=== PATIENT | male | born 1940 | race Caucasian/White ===

== ENCOUNTER 2016-10-29 11:19 | Observation (INO) ==
--- NOTE | 2016-10-29 11:32 | Emergency Department Note ---
Disposition Clinical Impression: Syncope Qualifiers: Syncope type: unspecified Qualified Code(s): R55 - Syncope and collapse Disposition: Admitted As Inpatient Condition: Fair Referrals: NO,PCP [Non-Partnered Physician] - Forms: ED Satisfaction Letter Time of Disposition: 13:29 Syncope HPI - General Chief Complaint: ED Syncope Stated Complaint: syncope Time Seen by Provider: 10/29/16 11:25 Source: patient, EMS Mode of arrival: EMS Limitations: no limitations Nursing Notes Reviewed: Yes Vital Signs Reviewed: Yes - History of Present Illness HPI Narrative: 76-year-old gentleman who was actually having a procedure done which they were injecting his knees with steroids for arthritis and apparently became unresponsive for about 30 seconds. Medical workers at the scene stated the patient did not have a pulse for approximately 30 seconds. Patient does have a history of pacemaker defibrillator. On arrival the patient's awake and alert. I had actually seen this patient 1 week ago for arthralgias gout. He states the symptoms related to that have improved with treatment. 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 Duration: second(s) (30) Prodromal Symptoms: lightheaded Context: at rest Injuries Sustained Associated with Event: none Current Symptoms: none History: history of CAD, pacemaker, AICD Treatments prior to arrival: none Associated trauma secondary to event: No - Related Data Home Medications Medication Instructions Recorded Confirmed Albuterol Sulfate [Ventolin Hfa] 1 puff IH Q4H PRN #0 02/04/16 05/10/16 Alprazolam [Xanax 1 MG Tablet] 1 mg PO TID PRN 02/04/16 05/10/16 Atorvastatin [Lipitor] 40 mg PO DAILY 02/04/16 05/10/16 Isosorbide MONOnitrate (24 HR) 30 mg PO DAILY 02/04/16 05/10/16 [Imdur] Rivaroxaban [Xarelto] 15 mg PO DAILY 02/04/16 05/10/16 Aspirin 81 mg PO DAILY 02/06/16 05/10/16 Metoprolol XL (24 HR) Succ [Toprol 50 mg PO BID 02/09/16 05/10/16 Xl] Albuterol Neb [AccuNeb] 0.63 mg IH Q6H PRN 05/10/16 05/10/16 Enalapril Maleate [Vasotec] 10 mg PO BID 05/10/16 05/10/16 Furosemide [Lasix] 20 mg PO DAILY 05/10/16 05/10/16 Previous Rx's Medication Instructions Recorded PredniSONE 20 mg PO DAILY #20 tablet 09/07/16 OxyCODONE/APAP 10/325 [Percocet 1 each PO Q6HR PRN #12 tablet 10/23/16 10/325 MG] PredniSONE 10 mg PO DAILY #21 tablet 10/23/16 Allergies Allergy/AdvReac Type Severity Reaction Status Date / Time Iodinated Contrast Media - Allergy Anaphylaxis Verified 10/29/16 11:23 Oral and levofloxacin [From Levaquin] AdvReac TENDONITIS Verified 10/29/16 11:23 Constitutional: Denies: fever, chills, weakness, weight change Eyes: Denies: eye pain, eye discharge, vision change ENT ED: Denies: ear pain, throat pain, dental pain, hearing loss, epistaxis, congestion, dysphagia Cardiovascular: Reports: syncope. Denies: chest pain, palpitations, dyspnea on exertion, edema Respiratory: Denies: cough, dyspnea, wheezes, hemoptysis, stridor Gastrointestinal: Denies: abdominal pain, nausea, vomiting, diarrhea, constipation, hematemesis, melena, hematochezia Genitourinary: Denies: urgency, dysuria, frequency, hematuria Musculoskeletal: Denies: back pain, neck pain, arthralgia, myalgia Integumentary: Denies: rash, abrasion, lesions Neurological: Denies: headache, weakness, numbness, paresthesias, confusion, abnormal gait, vertigo Psychiatric: Denies: anxiety, depression, suicidal thoughts, homicidal thoughts , auditory hallucinations, visual hallucinations Endocrine: Denies: fatigue Hematological/Lymphatic: Denies: easy bleeding, easy bruising Allergic/Immunologic: Denies: facial swelling, urticaria Past Medical History - Past Medical History Medical history: Reports: asthma, CHF, COPD, hypertension, other Surgical history: Reports: carotid endarterectomy, colectomy, coronary bypass ( CABG), pacemaker/AICD Psychiatric history: Reports: no psych history - Social History Smoking Status: Former smoker Smokeless Tobacco Status: No Alcohol use: Reports: none Drug use: Reports: none Physical Exam - General Limitations: no limitations General appearance: alert, in no apparent distress - Head Head exam: atraumatic, normocephalic, normal inspection - Eye Eye exam: Present: normal appearance, PERRL, EOMI - ENT ENT exam: normal exam, normal oropharynx, mucous membranes moist - Neck Neck exam: Present: normal inspection, full ROM, trachea midline - Chest Chest inspection: Present: normal inspection, symmetric chest wall rise - Respiratory Respiratory exam: Present: normal lung sounds bilaterally - Cardiovascular Cardiovascular exam: Present: regular rate, normal rhythm, normal heart sounds - Abdominal Exam Abdominal exam: Present: soft, Non-Tender. Absent: tenderness, distention, guarding, rebound, rigidity - Extremities Exam Extremities exam: Present: normal inspection, full ROM. Absent: tenderness, pedal edema - Expanded Lower Extremity Exam Neurovascular/Tendon exam: Absent: motor deficit, sensory deficit, tendon deficit - Back Exam Back exam: Present: normal inspection, full ROM. Absent: tenderness - Neurological Exam Neurological exam: Present: alert, oriented X3 - Psychiatric Psychiatric exam: Present: normal affect, normal mood - Skin Skin exam: Present: warm, dry, intact, normal color Course - Reevaluation(s) Reevaluation #1: 76-year-old who was involved in a procedure which he was going to get his knees injected and apparently suffered a syncopal episode lasting for about 30 seconds. The patient did not have a palpable pulse. Patient did come to a hand is back to baseline now. The patient does have a defibrillator. We did have an interrogation of the pacemaker which didn't show any abnormalities. Time: 13:30 - Consultations Consultation #1: Discussed with Dr. Juares, admit. Time: 13:27 Vital Signs Temperature 97.6 F 10/29/16 11:20 Pulse Rate 86 10/29/16 11:20 Respiratory Rate 20 10/29/16 11:20 Blood Pressure 134/73 10/29/16 11:20 O2 Sat by Pulse Oximetry 95 10/29/16 11:20 Temperature 97.6 F 10/29/16 11:20 Pulse Rate 70 10/29/16 13:20 Respiratory Rate 18 10/29/16 13:20 Blood Pressure 129/94 10/29/16 13:20 O2 Sat by Pulse Oximetry 99 10/29/16 13:20 Oxygen Delivery Oxygen Delivery Room Air Syncope - Lab Data Result diagrams: 10/29/16 12:00 10/29/16 12:00 Lab Results 10/29/16 10/29/16 10/29/16 Range/Units 11:31 12:00 12:00 WBC 8.4 (4.3-11.1) K/mcL RBC 3.65 L (4.19-5.50) M/mcL Hgb 11.3 L (12.9-16.9) g/dL Hct 34.2 L (37.5-50.1) % MCV 93.7 (83.0-100.0) fL MCH 31.0 (28.0-33.3) pg MCHC 33.0 (31.6-35.5) g/dL RDW 13.1 (11.5-14.5) % Plt Count 188 (140-400) K/mcL MPV 9.5 (9.4-12.4) fL Immature Gran % 1.2 (0-4) % Seg Neutrophils % 87.9 % Lymphocytes % 7.1 % Monocytes % 3.7 % Eosinophils % 0.0 % Basophils % 0.1 % Neutrophils # 7.4 (1.6-8.9) K/mcL Lymphocytes # 0.6 (0.6-4.6) K/mcL Monocytes # 0.3 (0.0-1.3) K/mcL Eosinophils # 0.0 (0.0-0.6) K/mcL Basophils # 0.0 (0.0-0.2) K/mcL PT 15.8 H (9.4-12.1) Seconds INR 1.5 APTT 26.3 (26.0-36.0) Seconds Sodium (136-145) mEq/L Potassium (3.5-4.5) mEq/L Chloride (98-109) mEq/L Carbon Dioxide (19-29) mEq/L BUN (8-26) mg/dL Creatinine (0.72-1.25) mg/dL Est GFR ( Amer) (> 60) Est GFR (Non-Af Amer) (> 60) BUN/Creatinine Ratio (6-26) Glucose (70-99) mg/dL POC Glucose 188 H (58-89) Calculated Osmolality (280-300) Calcium (8.6-10.8) mg/dL Troponin I (0-0.03) ng/mL 01/27/17 01/27/17 Range/Units 12:00 12:00 WBC (4.3-11.1) K/mcL RBC (4.19-5.50) M/mcL Hgb (12.9-16.9) g/dL Hct (37.5-50.1) % MCV (83.0-100.0) fL MCH (28.0-33.3) pg MCHC (31.6-35.5) g/dL RDW (11.5-14.5) % Plt Count (140-400) K/mcL MPV (9.4-12.4) fL Immature Gran % (0-4) % Seg Neutrophils % % Lymphocytes % % Monocytes % % Eosinophils % % Basophils % % Neutrophils # (1.6-8.9) K/mcL Lymphocytes # (0.6-4.6) K/mcL Monocytes # (0.0-1.3) K/mcL Eosinophils # (0.0-0.6) K/mcL Basophils # (0.0-0.2) K/mcL PT (9.4-12.1) Seconds INR APTT (26.0-36.0) Seconds Sodium 134 L (136-145) mEq/L Potassium 5.5 H (3.5-4.5) mEq/L Chloride 97 L (98-109) mEq/L Carbon Dioxide 28 (19-29) mEq/L BUN 70 H (8-26) mg/dL Creatinine 1.15 (0.72-1.25) mg/dL Est GFR ( Amer) > 60 (> 60) Est GFR (Non-Af Amer) > 60 (> 60) BUN/Creatinine Ratio 61 H (6-26) Glucose 178 H (70-99) mg/dL POC Glucose (58-89) Calculated Osmolality 303 H (280-300) Calcium 9.5 (8.6-10.8) mg/dL Troponin I 0.02 (0-0.03) ng/mL - EKG Data EKG attestation: Yes I reviewed and interpreted this EKG. EKG results narrative: Demand pacemaker
[2016-10-29 12:35] LABS: Basophils % 0.1 %; Hematocrit 34.2 % (37.5-50.1); Hemoglobin 11.3 g/dL (12.9-16.9); Immature Granulocytes % 1.2 % (0-4); Lymphocytes # 0.6 K/mcL (0.6-4.6); Lymphocytes % 7.1 %; Mean Corpuscular Volume 93.7 fL (83.0-100.0); Mean Platelet Volume 9.5 fL (9.4-12.4); Monocytes # 0.3 K/mcL (0.0-1.3); Monocytes % 3.7 %; Neutrophils # 7.4 K/mcL (1.6-8.9); Platelet Count 188 K/mcL (140-400); Red Blood Count 3.65 M/mcL (4.19-5.50); Red Cell Distribution Width 13.1 % (11.5-14.5); Segmented Neutrophils % 87.9 %
[2016-10-29 12:41] LABS: INR 1.5; Prothrombin Time 15.8 Seconds (9.4-12.1)
[2016-10-29 12:44] LABS: Activated Partial Thrombo Time 26.3 Seconds (26.0-36.0)
[2016-10-29 12:45] LABS: BUN/Creatinine Ratio 61 (6-26); Blood Urea Nitrogen 70 mg/dL (8-26); Calcium 9.5 mg/dL (8.6-10.8); Carbon Dioxide 28 mEq/L (19-29); Chloride 97 mEq/L (98-109); Glucose 178 mg/dL (70-99); Osmolality,Calculated 303 (280-300); Potassium 5.5 mEq/L (3.5-4.5); Sodium 134 mEq/L (136-145); eGFR For African Americans > 60 (> 60); eGFR For Non-African Americans > 60 (> 60)
[2016-10-29] MEDS ORDERED: Naloxone 0.4 MG/ML INJ IVP PRN (15:09)
[2016-10-29] MEDS ORDERED: *HR* OxyCODONE/APAP 5/325 TABLET PO PRN (15:14)
--- NOTE | 2016-10-29 15:25 | Internal Med History&Physical ---
<Alonso Juares - Last Filed: 10/29/16 18:38> Date of Encounter: 10/29/16 Internal Medicine - H&P: HPI History of present illness: Mr. Perry is a 76 year old male Internal Medicine - H&P: Meds Albuterol Sulfate [Ventolin Hfa] 1 puff IH Q4H PRN #0 02/04/16 [History] Isosorbide MONOnitrate (24 HR) [Imdur] 30 mg PO DAILY 02/04/16 [History] Rivaroxaban [Xarelto] 15 mg PO DAILY 02/04/16 [History] Aspirin 81 mg PO DAILY 02/06/16 [History] Albuterol Neb [AccuNeb] 0.63 mg IH Q6H PRN 05/10/16 [History] Enalapril Maleate [Vasotec] 10 mg PO BID 05/10/16 [History] OxyCODONE/APAP 10/325 [Percocet 10/325 MG] 1 each PO Q6HR PRN #12 tablet [Rx] Alprazolam [Xanax 0.5 MG Tablet] 0.5 mg PO TID PRN 10/29/16 [History] Digoxin [Lanoxin] 0.125 mg PO DAILY 10/29/16 [History] Docusate Sodium [Dok] 100 mg PO DAILY 10/29/16 [History] FentaNYL PATCH [Duragesic] 12 mcg TD Q72H 10/29/16 [History] Furosemide [Lasix] 40 mg PO DAILY 10/29/16 [History] Metoprolol [Lopressor] 50 mg PO BID 10/29/16 [History] Potassium Chloride [Klor-Con Sprinkle] 10 meq PO DAILY 10/29/16 [History] Allergies Iodinated Contrast Media - Oral and Allergy (Verified 10/29/16 14:08) Anaphylaxis levofloxacin [From Levaquin] Adverse Reaction (Verified 10/29/16 14:08) TENDONITIS All Systems PM: A 10-system review of systems was performed and is negative for pertinent findings except as documented above in the HPI. - Constitutional Vitals: Temp Pulse Resp BP Pulse Ox 97.7 F 74 18 154/82 97 10/29/16 14:15 10/29/16 14:15 10/29/16 14:15 10/29/16 14:15 10/29/16 14:15 Internal Med - H&P Results - Labs CBC & Chem 7: 10/29/16 12:00 10/29/16 12:00 - Attending Attestation I examined this patient and my medical decision-making was reviewed with the Advanced Practice Provider. I agree with the documented findings, disposition and treatment plan as described except to the extent set forth below. He was sent for evaluation for reported withunresponsive episode and pulselessness lasted for 30 seconds. He denies syncope denies loss of consciousness. On exam he is in no acute distress awake alert oriented 3 heart is regular rate and rhythm S1-S2 with no murmurs. Plan: Telemetry, trend troponin. Check digoxin level. Check orthostatic vital signs to rule out a blood pressure drop one of which could have caused syncope. <Ros Cochran - Last Filed: 10/30/16 00:30> Date of Encounter: 10/30/16 Time of Encounter: 15:17 Assessment and Plan (1) Syncope Current visit: Yes Status: Acute patient was witnessed with unresponsive, pulseless episode at outpatient office today. Patient reports feeling dizzy and nauseous, but does not recall losing consciousness. Patient with significant cardiac history with cardiomyopathy and EF of 15-20% on last echo in April. Interrogation of his AICD reveals 100% AT/Afib with no events. CT Head negative for acute abnormality. 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 Qualifiers: Syncope type: unspecified Qualified Code(s): R55 - Syncope and collapse (2) Hypertension Current visit: Yes Status: Acute Continue home doses of lasix, imdur, lisinopri and metoprolol Qualifiers: Hypertension type: essential hypertension Qualified Code(s): I10 - Essential (primary) hypertension (3) Ischemic cardiomyopathy Current visit: No Status: Acute Last echo showed Severely dilated Left ventricle with Severe left ventricle systolic dysfunction and LVEF of 15-20% Continue digoxin, lasix, imdur. Patient with AICD in place. Digoxin level ordered. (4) Paroxysmal a-fib Current visit: No Status: Acute Patient on Xarelto for anticoagulation and metoprolol for rate control. Also with AICD/pacemaker. Continue home doses of Xarelto and metoprolol. (5) Hyperkalemia Current visit: Yes Status: Acute Potassium of 5.5. Hold home dose of potassium supplement Kayexalate 15gm Recheck chemistry in the morning. (6) DVT prophylaxis Current visit: No Status: Acute Up to chair as tolerated Anti-embolic stockings Patient on Xarelto, continue home dose. No need for additional pharmacologic prophylaxis. Internal Medicine - H&P: HPI Chief complaint: Unresponsive episode Admitted From: Emergency Dept Plans for Post Hospital Care: Home History of present illness: Mr. Perry is a 76 year old male with ischemic cardiomyopathy with EF of 15-20% and with AICD, Afib, CHF, COPD, who was getting a steroid injection in his knee and reportedly became unresponsive without a pulse for approximately 30 seconds. Patient reports he felt a little dizzy and nauseous, but does not recall losing consciousness. He denies any chest pain, palpitations, headache. He denies any other recent episodes of lightheadedness or dizziness. Evaluation in the ED was significant for mild hyperkalemia with potassium 5.5, troponin was negative at 0.02. Interrogation of his pacemaker showed 100% Afib , with no events. EKG showed no new ischemic changes. CXR with no acute findings. CT of head with no acute abnormalities. On exam, patient is alert and oriented, in no distress. Heart has irregular rhythm. Lungs are clear. Patient reporting joint pain. Past Med Surg Social Fam HX - Past Medical History Medical history: asthma, atrial fibrillation, cardiomyopathy, CHF, COPD, coronary artery disease, DVT, hypertension, renal disease, other Psychiatric history: no psych history - Past Surgical History Surgical History: carotid endarterectomy, cholecystectomy, coronary bypass (CABG ) (twice), pacemaker/AICD, vascular surgery (AAA repair) - Social History Smoking Status: Former smoker (100 pack year history (3PPD x 30+years, quit 1979 )) Smokeless Tobacco Status: No Alcohol use: none Drug use: none - Family History Father Living Status: Hx Family Cancer: Yes (skin cancer) Mother Living Status: Age at : 49 Cause of : Cancer Hx Family Cancer: Yes All Systems PM: A 10-system review of systems was performed and is negative for pertinent findings except as documented above in the HPI. - Constitutional Constitutional: no chills, no fever(s), no night sweats - EENT Eyes: no change in vision, no discharge, no pain, no photophobia Ears: no ear discharge, no ear pain, no tinnitus Nose, mouth and throat: no dysphagia, no nasal discharge, no neck pain, no sore throat - Cardiovascular Cardiovascular ROS IM: syncope, no chest pain, no diaphoresis, no dyspnea, no lightheadedness, no palpitations - Respiratory Respiratory: no cough, no dyspnea, no wheezing, no excessive phlegm production - Gastrointestinal Gastrointestinal: nausea, no abdominal pain, no diarrhea, no hematemesis, no hematochezia, no melena, no vomiting - Musculoskeletal Musculoskeletal ROS IM: arthralgias, joint swelling, no numbness, no tingling - Integumentary Integumentary IM: no rash, no unusual bruising - Neurological Neurological ROS: no confusion, no convulsions, no focal weakness, no numbness, no tingling, no tremor(s) - Hematologic/Lymphatic Hematologic/Lymphatic: easy bruising - Constitutional Vitals: Temp Pulse Resp BP Pulse Ox 97.7 F 74 18 154/82 97 10/29/16 14:15 10/29/16 14:15 10/29/16 14:15 10/29/16 14:15 10/29/16 14:15 General appearance: Present: A&O X 3, no acute distress - Head Head exam: Present: atraumatic, normocephalic - Eye Eye exam: Present: PERRL, conjuntiva pink, sclera anicteric Pupils: Present: PERRL - Neck Neck exam general surgery: Present: supple, trachea midline. Absent: lymphadenopathy - Respiratory Respiratory exam: Present: CTAB. Absent: accessory muscle use, rales, rhonchi, wheezes - Cardiovascular Cardiovascular exam: Present: irregular rhythm, +S1, +S2, systolic murmur. Absent: diastolic murmur, gallop, rubs - GI/Abdominal GI/Abdominal exam: Present: normal bowel sounds, soft, no peritoneal signs. Absent: distended, tenderness - Extremities Exam Extremities exam: Present: joint swelling, pedal edema, warm, radial pulses palpable and symetrical. Absent: calf tenderness, cyanotic - Neurological Exam Neurological exam: Present: CN II-XII intact, oriented X3, no focal deficits. Absent: pronater drift, facial droop, speech deficit - Skin Skin exam: Present: dry, intact Internal Med - H&P Results - Labs CBC & Chem 7: 10/29/16 12:00 10/29/16 12:00 Labs: All Lab Results (24 Hours) 10/29/16 10/29/16 10/29/16 Range/Units 11:31 12:00 12:00 WBC 8.4 (4.3-11.1) K/mcL RBC 3.65 L (4.19-5.50) M/mcL Hgb 11.3 L (12.9-16.9) g/dL Hct 34.2 L (37.5-50.1) % MCV 93.7 (83.0-100.0) fL MCH 31.0 (28.0-33.3) pg MCHC 33.0 (31.6-35.5) g/dL RDW 13.1 (11.5-14.5) % Plt Count 188 (140-400) K/mcL MPV 9.5 (9.4-12.4) fL Immature Gran % 1.2 (0-4) % Seg Neutrophils % 87.9 % Lymphocytes % 7.1 % Monocytes % 3.7 % Eosinophils % 0.0 % Basophils % 0.1 % Neutrophils # 7.4 (1.6-8.9) K/mcL Lymphocytes # 0.6 (0.6-4.6) K/mcL Monocytes # 0.3 (0.0-1.3) K/mcL Eosinophils # 0.0 (0.0-0.6) K/mcL Basophils # 0.0 (0.0-0.2) K/mcL PT 15.8 H (9.4-12.1) Seconds INR 1.5 APTT 26.3 (26.0-36.0) Seconds Sodium (136-145) mEq/L Potassium (3.5-4.5) mEq/L Chloride (98-109) mEq/L Carbon Dioxide (19-29) mEq/L BUN (8-26) mg/dL Creatinine (0.72-1.25) mg/dL Est GFR ( Amer) (> 60) Est GFR (Non-Af Amer) (> 60) BUN/Creatinine Ratio (6-26) Glucose (70-99) mg/dL POC Glucose 188 H (58-89) Calculated Osmolality (280-300) Calcium (8.6-10.8) mg/dL Troponin I (0-0.03) ng/mL 10/29/16 10/29/16 Range/Units 12:00 12:00 WBC (4.3-11.1) K/mcL RBC (4.19-5.50) M/mcL Hgb (12.9-16.9) g/dL Hct (37.5-50.1) % MCV (83.0-100.0) fL MCH (28.0-33.3) pg MCHC (31.6-35.5) g/dL RDW (11.5-14.5) % Plt Count (140-400) K/mcL MPV (9.4-12.4) fL Immature Gran % (0-4) % Seg Neutrophils % % Lymphocytes % % Monocytes % % Eosinophils % % Basophils % % Neutrophils # (1.6-8.9) K/mcL Lymphocytes # (0.6-4.6) K/mcL Monocytes # (0.0-1.3) K/mcL Eosinophils # (0.0-0.6) K/mcL Basophils # (0.0-0.2) K/mcL PT (9.4-12.1) Seconds INR APTT (26.0-36.0) Seconds Sodium 134 L (136-145) mEq/L Potassium 5.5 H (3.5-4.5) mEq/L Chloride 97 L (98-109) mEq/L Carbon Dioxide 28 (19-29) mEq/L BUN 70 H (8-26) mg/dL Creatinine 1.15 (0.72-1.25) mg/dL Est GFR ( Amer) > 60 (> 60) Est GFR (Non-Af Amer) > 60 (> 60) BUN/Creatinine Ratio 61 H (6-26) Glucose 178 H (70-99) mg/dL POC Glucose (58-89) Calculated Osmolality 303 H (280-300) Calcium 9.5 (8.6-10.8) mg/dL Troponin I 0.02 (0-0.03) ng/mL
[2016-10-29] MEDS: *HR* HYDROmorphone (PF) 1 MG/ML SYRINGE IVP PRN (20:27)
[2016-10-29] MEDS: Famotidine 20 MG TABLET PO SCH (20:27)
[2016-10-29] MEDS ORDERED: Albuterol 2.5 MG/3 ML NEBULIZER IH PRN (21:45)
[2016-10-30] MEDS: *HR* HYDROmorphone (PF) 1 MG/ML SYRINGE IVP PRN ×2 (03:43→10:50)
[2016-10-30 06:14] LABS: Basophils % 0.2 %; Eosinophils # 0.1 K/mcL (0.0-0.6); Eosinophils % 0.6 %; Hematocrit 31.5 % (37.5-50.1); Hemoglobin 10.6 g/dL (12.9-16.9); Lymphocytes # 1.8 K/mcL (0.6-4.6); Lymphocytes % 21.7 %; Mean Corpuscular HGB Conc 33.7 g/dL (31.6-35.5); Mean Corpuscular Hemoglobin 31.2 pg (28.0-33.3); Mean Corpuscular Volume 92.6 fL (83.0-100.0); Mean Platelet Volume 9.6 fL (9.4-12.4); Monocytes # 0.6 K/mcL (0.0-1.3); Monocytes % 6.7 %; Neutrophils # 5.7 K/mcL (1.6-8.9); Platelet Count 183 K/mcL (140-400); Red Cell Distribution Width 13.2 % (11.5-14.5); Segmented Neutrophils % 69.8 %
[2016-10-30 06:18] LABS: BUN/Creatinine Ratio 59 (6-26); Blood Urea Nitrogen 73 mg/dL (8-26); Calcium 8.7 mg/dL (8.6-10.8); Carbon Dioxide 24 mEq/L (19-29); Chloride 98 mEq/L (98-109); Glucose 145 mg/dL (70-99); Osmolality,Calculated 302 (280-300); Potassium 4.7 mEq/L (3.5-4.5); Sodium 134 mEq/L (136-145); eGFR For African Americans > 60 (> 60); eGFR For Non-African Americans 56 (> 60)
--- NOTE | 2016-10-30 09:04 | ECHO - Doppler Report ---
Limited Echocardiogram Name: Will Perry Date of Study: 10/29/2016 Date: 1940 Ht: 71.0 in Medical Record#: [id number] Age: 76 Wt: 232.0 lb Gender: Male BSA: 2.25 Order #: [id number] Location: [facility] Room #: [facility] Reading Physician: Eren Segura MD, [facility] [employer] Maker Helper: Kasey Leon RDCS Ordering Physician: Ros Cochran CNP Primary Physician: Jaime Isaac DO Indications: Syncope Impressions: Moderately dilated left ventricle. Severe left ventricular systolic dysfunction, LVEF 25-30%. There is global LV hypokinesis with regional variations. Mild concentric left ventricular hypertrophy. Right ventricle was not well visualized. Valvular function was not assessed on this limited study. Left Ventricular Wall Motion: Rest Echo Findings The apex, apical inferior, mid inferior, basal inferior, apical anterior, mid anterior, basal anterior, apical septal, mid inferior septal, basal inferior septal, apical lateral, mid anterior lateral, basal anterior lateral, mid anterior septal, mid inferior lateral, basal anterior septal and basal inferior lateral seo were hypokinetic. Findings: Study Quality * Suboptimal echo windows. ECG Findings * Probable atrial fibrillation with ventricular pacing. Left Ventricle * Moderately dilated left ventricle. * Severe left ventricular systolic dysfunction, LVEF 25-30%. There is global LV hypokinesis with regional variations. * Mild concentric left ventricular hypertrophy. Right Ventricle * Right ventricle was not well visualized. Aorta * Normally sized aortic root. Pericardium * There is no pericardial effusion present. IVC * Normal IVC dimensions and inspiratory collapse. History Hypertension History of CAD/PTCA Coronary Artery Bypass Graft Congestive Heart Failure Pacer/ICD Implant 04/20/2016 a Previous Echo was performed. Measurements: BP: 107/ 64 2D Normal Values RVIDd: 3.66 cm IVSd: 1.20 cm 0.6 - 1.0 cm LVIDd: 6.40 cm 3.7 - 5.6 cm LVPWd: 1.20 cm 0.6 - 1.1 cm LVIDs: 5.90 cm 1.5 - 3.6 cm AO: 3.60 cm < 4.0 cm Updated by Eren Segura MD, [facility] on 10/30/2016 8:58:40 AM electronically signed on 10/30/2016 9:00:06 AM with status of Final Wall Motion Bradley: 1=Normal, 2=Hypokinesis, 3=Akinesis, 4=Dyskinesis, 5=Aneurysmal, 6=Hyperkinetic, X=Not Visualized (Blank)=Missing
[2016-10-30] MEDS: Furosemide 40 MG TABLET PO SCH (09:39)
[2016-10-30] MEDS: *HR* Digoxin 0.125 MG TABLET PO SCH (09:39)
[2016-10-30] MEDS: Isosorbide MONOnitrate (24 HR) 30 MG TAB.ER.24H PO SCH (09:39)
[2016-10-30] MEDS: *HR* Rivaroxaban 15 MG TABLET PO SCH (09:39)
[2016-10-30] MEDS: Famotidine 20 MG TABLET PO SCH ×2 (09:39→20:21)
[2016-10-30] MEDS: Aspirin 81 MG TAB.CHEW PO SCH (09:39)
--- NOTE | 2016-10-30 12:58 | Palliative - Consult Note ---
Date of Encounter: 10/30/16 Time of Encounter: 13:00 - Assessment and Plan (1) Pain Current Visit: Yes Status: Acute Assessment and plan: Will resume Fentanyl 12mcg patch as pt takes at home, continue Percocet for breakthrough pain (2) Goals of care, counseling/discussion Current Visit: Yes Status: Acute Assessment and plan: Patient is enrolled in [facility] for CHF diagnosis. Lives with , who has had CVA and states they get some assistance from other family members. 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 denies any other type of equipment need at home, stated "he probably shouldn't have went for the knee injection yesterday, probably too much for his body to handle.". (3) Syncope Current Visit: Yes Status: Acute Qualifiers: Syncope type: unspecified Qualified Code(s): R55 - Syncope and collapse Palliative-CN HPI - Data of Consult Requesting Physician: Chuy Joseph Primary Care Provider: Jaime Isaac, - Consult Narrative History of present illness: Mr. Perry is a 76 year old male who has history of CHF, cardiomyopathy, pacer/ AICD and is enrolled in [facility] at home, who presented to hospital after a syncopal episode following a knee injection. He is currently resting in hospital bed, no family present. He was sleeping on my arrival, and irritated with me for disturbing him. He had one episode of chest pain earlier this am, which is now relieved. Echo yesterday demonstrated EF 25%. Labwork noted. Pacer/AICD interrogation was completed yesterday as well. He currently complains of "hurting all over" and "feeling terrible". Does not elaborate. Other medical history includes DVT, COPD, CAD, HTN, Renal disease. CC: Chuy Joseph Past Med Surg Social Fam HX - Past Medical History Medical history: asthma, atrial fibrillation, cardiomyopathy, CHF, COPD, coronary artery disease, DVT, hypertension, renal disease, other Psychiatric history: no psych history - Past Surgical History Surgical History: carotid endarterectomy, cholecystectomy, coronary bypass (CABG ) (twice), pacemaker/AICD, vascular surgery (AAA repair) - Social History Smoking Status: Former smoker (100 pack year history (3PPD x 30+years, quit 1979 )) Smokeless Tobacco Status: No Alcohol use: none Drug use: none - Family History Mother Living Status: Age at : 49 Cause of : Cancer Hx Family Cancer: Yes Father Living Status: Hx Family Cancer: Yes (skin cancer) Medications and Allergies Albuterol Sulfate [Ventolin Hfa] 1 puff IH Q4H PRN #0 02/04/16 [History] Isosorbide MONOnitrate (24 HR) [Imdur] 30 mg PO DAILY 02/04/16 [History] Rivaroxaban [Xarelto] 15 mg PO DAILY 02/04/16 [History] Aspirin 81 mg PO DAILY 02/06/16 [History] Albuterol Neb [AccuNeb] 0.63 mg IH Q6H PRN 05/10/16 [History] Enalapril Maleate [Vasotec] 10 mg PO BID 05/10/16 [History] OxyCODONE/APAP 10/325 [Percocet 10/325 MG] 1 each PO Q6HR PRN #12 tablet [Rx] Alprazolam [Xanax 0.5 MG Tablet] 0.5 mg PO TID PRN 10/29/16 [History] Digoxin [Lanoxin] 0.125 mg PO DAILY 10/29/16 [History] Docusate Sodium [Dok] 100 mg PO DAILY 10/29/16 [History] FentaNYL PATCH [Duragesic] 12 mcg TD Q72H 10/29/16 [History] Furosemide [Lasix] 40 mg PO DAILY 10/29/16 [History] Metoprolol [Lopressor] 50 mg PO BID 10/29/16 [History] Potassium Chloride [Klor-Con Sprinkle] 10 meq PO DAILY 10/29/16 [History] Allergies Iodinated Contrast Media - Oral and Allergy (Verified 10/29/16 14:08) Anaphylaxis levofloxacin [From Levaquin] Adverse Reaction (Verified 10/29/16 14:08) TENDONITIS All systems: reviewed and no additional remarkable complaints except as stated ( generalized weakness, intermittent chest pain,) Palliative Care-Exam - Constitutional Vitals: Temp Pulse Resp BP Pulse Ox 97.8 F 76 14 134/56 97 10/30/16 06:51 10/30/16 06:51 10/30/16 06:51 10/30/16 06:51 10/30/16 06:51 General appearance: Present: average body habitus - Head Head Exam: Present: normal inspection, normocephalic - Eye Eye exam: Present: EOMI, normal appearance, PERRL - Respiratory Respiratory exam: Present: CTAB - Cardiovascular Cardiovascular exam: Present: +S1, +S2, systolic murmur - GI/Abdominal Exam GI/Abdominal exam: Present: normal bowel sounds, soft - Extremities Exam Extremities exam: Present: normal capillary refill Additional comments: 2+ edema bilateral lower extremities - Neurological Exam Neurological exam: Present: alert, oriented X3, strengths equal and symetr throughout - Skin Skin exam: Present: dry, pallor, warm Internal Medicine - CN: Reslt - Labs CBC & Chem 7: 10/30/16 04:56 10/30/16 04:56 Labs: Short CBC 10/30/16 Range/Units 04:56 WBC 8.2 (4.3-11.1) K/mcL Hgb 10.6 L (12.9-16.9) g/dL Hct 31.5 L (37.5-50.1) % Plt Count 183 (140-400) K/mcL Neutrophils # 5.7 (1.6-8.9) K/mcL BMP 10/30/16 04:56 Sodium 134 L Potassium 4.7 H Chloride 98 Carbon Dioxide 24 BUN 73 H Creatinine 1.24 Glucose 145 H Calcium 8.7 Cardiac Enzymes 10/29/16 10/30/16 10/30/16 Range/Units 18:18 04:56 11:41 Troponin I 0.02 0.03 0.03 (0-0.03) ng/mL - ABG Interpretation ABG results: PT/INR, D-dimer PT 15.8 Seconds (9.4-12.1) H 10/29/16 12:00 Consult Discharge Plan - Plan Referrals: Jaime Isaac DO [Primary Care Provider] - Palliative Quality Palliative Quality: Screen for Code Status: Yes, Screen for Goals of Care: Yes, Screen for Pain: Yes, If Pain Regimen Started, Initiate Bowel Regimen: Yes, Screen for Nausea/Vomitting: Yes Code Status: 10/29/16 15:09 Resuscitation Status: Active [RES] Routine Comment: Resuscitation Status: DNR-Comfort Care
[2016-10-30] MEDS ORDERED: *HR* FentaNYL PATCH 12 MCG PATCH TD SCH (13:00)
--- NOTE | 2016-10-30 17:08 | Internal Med Progress Note ---
Date of Encounter: 10/30/16 Time of Encounter: 17:06 - Assessment and plan (1) Syncope Current Visit: Yes Status: Acute Assessment and plan: Syncope likely vasovagal in origin. We will continue monitoring. The patient is under hospice care, will not proceed with any invasive workup at this point. I have consulted our hospice by the surgical team for further evaluation. We will continue with his home medication for pain control. Had chest pain however troponins have been negative. We will stop monitoring troponins at this point. We will continue current management and possible discharge tomorrow in a.m. back to home hospice services. Qualifiers: Syncope type: unspecified Qualified Code(s): R55 - Syncope and collapse (2) Goals of care, counseling/discussion Current Visit: Yes Status: Acute (3) Biventricular ICD (implantable cardioverter-defibrillator) in place Current Visit: No Status: Acute (4) Congestive heart failure Current Visit: No Status: Acute Qualifiers: Congestive heart failure type: unspecified congestive heart failure type Congestive heart failure chronicity: acute on chronic Qualified Code(s): I50.9 - Heart failure, unspecified - Time Spent With Patient 25 - 35 minutes - Subjective Interval history: 1st encounter with the patient. The patient was complaining of chest pain. Denies shortness of breath. He did receive opiates for pain control. - Constitutional Vitals: Temp Pulse Resp BP Pulse Ox 97.8 F 74 18 109/59 98 10/30/16 15:26 10/30/16 15:26 10/30/16 15:26 10/30/16 15:26 10/30/16 15:26 General appearance: Present: A&O X 3, no acute distress - Head Head exam: Present: atraumatic, normocephalic - Eye Eye exam: Present: PERRL, conjuntiva pink, sclera anicteric Pupils: Present: PERRL - Neck Neck exam general surgery: Present: supple, trachea midline. Absent: lymphadenopathy - Respiratory Respiratory exam: Present: CTAB. Absent: accessory muscle use, rales, rhonchi, wheezes - Cardiovascular Cardiovascular exam: Present: RRR, +S1, +S2. Absent: diastolic murmur, gallop, rubs, systolic murmur - GI/Abdominal GI/Abdominal exam: Present: normal bowel sounds, soft, no peritoneal signs. Absent: distended, tenderness - Extremities Exam Extremities exam: Present: warm, radial pulses palpable and symetrical. Absent : calf tenderness, cyanotic, pedal edema - Neurological Exam Neurological exam: Present: CN II-XII intact, oriented X3, no focal deficits. Absent: pronater drift, facial droop, speech deficit - Skin Skin exam: Present: dry, intact Internal Medicine: Result - Labs CBC & Chem 7: 10/30/16 04:56 10/30/16 04:56 Labs: Short CBC 10/30/16 Range/Units 04:56 WBC 8.2 (4.3-11.1) K/mcL Hgb 10.6 L (12.9-16.9) g/dL Hct 31.5 L (37.5-50.1) % Plt Count 183 (140-400) K/mcL Neutrophils # 5.7 (1.6-8.9) K/mcL BMP 10/30/16 04:56 Sodium 134 L Potassium 4.7 H Chloride 98 Carbon Dioxide 24 BUN 73 H Creatinine 1.24 Glucose 145 H Calcium 8.7 Cardiac Enzymes 10/29/16 10/30/16 10/30/16 Range/Units 18:18 04:56 11:41 Troponin I 0.02 0.03 0.03 (0-0.03) ng/mL - ABG Interpretation ABG results: PT/INR, D-dimer PT 15.8 Seconds (9.4-12.1) H 10/29/16 12:00 Consult Discharge Plan - Plan Referrals: Jaime Isaac DO [Primary Care Provider] -
[2016-10-30] MEDS: ALPRAZolam 0.5 MG TABLET PO PRN (20:21)
[2016-10-31 04:51] LABS: Basophils % 0.3 %; Eosinophils # 0.2 K/mcL (0.0-0.6); Eosinophils % 2.8 %; Hematocrit 32.7 % (37.5-50.1); Immature Granulocytes % 1.7 % (0-4); Lymphocytes # 1.4 K/mcL (0.6-4.6); Lymphocytes % 19.6 %; Mean Corpuscular HGB Conc 33.6 g/dL (31.6-35.5); Mean Corpuscular Hemoglobin 30.8 pg (28.0-33.3); Mean Corpuscular Volume 91.6 fL (83.0-100.0); Mean Platelet Volume 9.1 fL (9.4-12.4); Monocytes # 0.3 K/mcL (0.0-1.3); Monocytes % 4.8 %; Neutrophils # 5.1 K/mcL (1.6-8.9); Platelet Count 182 K/mcL (140-400); Red Blood Count 3.57 M/mcL (4.19-5.50); Red Cell Distribution Width 13.2 % (11.5-14.5); Segmented Neutrophils % 70.8 %
[2016-10-31 05:12] LABS: Calcium 8.4 mg/dL (8.6-10.8); Potassium 4.4 mEq/L (3.5-4.5)
--- NOTE | 2016-10-31 05:28 | Electrocardiograph Report ---
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
[2016-10-31] MEDS: Isosorbide MONOnitrate (24 HR) 30 MG TAB.ER.24H PO SCH (09:51)
[2016-10-31] MEDS: *HR* Digoxin 0.125 MG TABLET PO SCH (09:51)
[2016-10-31] MEDS: ALPRAZolam 0.5 MG TABLET PO PRN ×2 (09:51→14:57)
[2016-10-31] MEDS: Famotidine 20 MG TABLET PO SCH (09:51)
[2016-10-31] MEDS: *HR* Rivaroxaban 15 MG TABLET PO SCH (09:51)
[2016-10-31] MEDS: Aspirin 81 MG TAB.CHEW PO SCH (09:51)
[2016-10-31] MEDS: Furosemide 40 MG TABLET PO SCH (09:52)
[2016-10-31 10:48] VITALS: BP 110/51
--- NOTE | 2016-10-31 10:50 | Discharge Summary ---
Date of Encounter: 10/31/16 Time of Encounter: 10:46 - Discharge Diagnosis (1) Syncope Priority: Primary Status: Acute Qualifiers: Syncope type: unspecified Qualified Code(s): R55 - Syncope and collapse (2) Goals of care, counseling/discussion Priority: Secondary Status: Acute (3) Biventricular ICD (implantable cardioverter-defibrillator) in place Priority: Secondary Status: Acute (4) Congestive heart failure Priority: Secondary Status: Acute Qualifiers: Congestive heart failure type: unspecified congestive heart failure type Congestive heart failure chronicity: acute on chronic Qualified Code(s): I50.9 - Heart failure, unspecified - Discharge Medications Home Medications: Albuterol Sulfate [Ventolin Hfa] 1 puff IH Q4H PRN #0 02/04/16 [History] Isosorbide MONOnitrate (24 HR) [Imdur] 30 mg PO DAILY 02/04/16 [History] Rivaroxaban [Xarelto] 15 mg PO DAILY 02/04/16 [History] Aspirin 81 mg PO DAILY 02/06/16 [History] Albuterol Neb [AccuNeb] 0.63 mg IH Q6H PRN 05/10/16 [History] Enalapril Maleate [Vasotec] 10 mg PO BID 05/10/16 [History] OxyCODONE/APAP 10/325 [Percocet 10/325 MG] 1 each PO Q6HR PRN #12 tablet [Rx] Alprazolam [Xanax 0.5 MG Tablet] 0.5 mg PO TID PRN 10/29/16 [History] Digoxin [Lanoxin] 0.125 mg PO DAILY 10/29/16 [History] Docusate Sodium [Dok] 100 mg PO DAILY 10/29/16 [History] FentaNYL PATCH [Duragesic] 12 mcg TD Q72H 10/29/16 [History] Furosemide [Lasix] 40 mg PO DAILY 10/29/16 [History] Metoprolol [Lopressor] 50 mg PO BID 10/29/16 [History] Potassium Chloride [Klor-Con Sprinkle] 10 meq PO DAILY 10/29/16 [History] Allergies/Adverse Reactions: Allergies Iodinated Contrast Media - Oral and Allergy (Verified 10/29/16 14:08) Anaphylaxis levofloxacin [From Levaquin] Adverse Reaction (Verified 10/29/16 14:08) TENDONITIS Procedures/tests Complete & Pending: Procedures Performed prior 72 hours Category Date Time Status EV limited echocardiogram Routine Y 10/29/16 15:15 Completed Date of admission: 10/29/16 13:41 Primary care physician: Jaime Isaac, Consults: 10/29/16 14:28 Consult to Nutrition [CONS] Routine Comment: Consulting Provider: NUTRITION Reason for Dietary Consult: MST Score 10/30/16 11:25 Consult to Palliative Care [CONS] Routine Comment: Consulting Provider: Palliative Care [employer] Discharging clinician: Chuy Joseph Anticipated date of discharge: 10/31/16 - Patient Status Disposition: Home Health Service Condition: Fair Functional capacity at discharge: bed bound Overall status at discharge: patient is back to baseline - Discharge Instructions Follow Up With: Jaime Isaac DO [Primary Care Provider] - - Diet and Activity Activity: increase activity as tolerated Interval History: Mr. Perry is a 76 year old male with ischemic cardiomyopathy with EF of 15-20% and with AICD, Afib, CHF, COPD, who was getting a steroid injection in his knee and reportedly became unresponsive without a pulse for approximately 30 seconds. Patient reports he felt a little dizzy and nauseous, but does not recall losing consciousness. He denies any chest pain, palpitations, headache. He denies any other recent episodes of lightheadedness or dizziness. Evaluation in the ED was significant for mild hyperkalemia with potassium 5.5, troponin was negative at 0.02. Interrogation of his pacemaker showed 100% Afib , with no events. EKG showed no new ischemic changes. CXR with no acute findings. CT of head with no acute abnormalities. On exam, patient is alert and oriented, in no distress. Heart has irregular rhythm. Lungs are clear. Patient reporting joint pain. Hospital course: Mr. Perry is a 76 year old male admitted due to syncope. Likely vasovagal in origin after a knee injection. The patient has severe systolic dysfunction, ICD Placed. He Is Also under Hospice Care at Home. He Was Evaluated by Our Palliative Care Services during His admission. He Has Been Stable, His Cardiac Biomarkers Have Been Negative for Ischemia. At This Point There Is No More Chest Pain, the Patient Feels Much Better. We Will Discharge the Patient Home Today, He Will Continue with His Medications at Home, and His Further Management Will Be under Hospice Care. The Patient Was Explained in Detail about the Plan, He Barely Expressed Understanding. - Time Spent with Patient Total time spent providing and/or coordinating discharge services: Greater than 30 minutes - Constitutional Vitals: Temp Pulse Resp BP Pulse Ox 97.4 F L 68 14 119/68 96 10/31/16 06:19 10/31/16 06:19 10/31/16 06:19 10/31/16 06:19 10/31/16 06:19 General appearance: Present: A&O X 3, no acute distress - Head Head exam: Present: atraumatic, normocephalic - Eye Eye exam: Present: PERRL, conjuntiva pink, sclera anicteric Pupils: Present: PERRL - Neck Neck exam general surgery: Present: supple, trachea midline. Absent: lymphadenopathy - Respiratory Respiratory exam: Present: CTAB. Absent: accessory muscle use, rales, rhonchi, wheezes - Cardiovascular Cardiovascular exam: Present: RRR, +S1, +S2. Absent: diastolic murmur, gallop, rubs, systolic murmur - GI/Abdominal GI/Abdominal exam: Present: normal bowel sounds, soft, no peritoneal signs. Absent: distended, tenderness - Extremities Exam Extremities exam: Present: warm, radial pulses palpable and symetrical. Absent : calf tenderness, cyanotic, pedal edema - Neurological Exam Neurological exam: Present: CN II-XII intact, oriented X3, no focal deficits. Absent: pronater drift, facial droop, speech deficit - Skin Skin exam: Present: dry, intact
--- NOTE | 2016-10-31 10:57 | Physician Discharge Referral ---
Home Health/Hosp Referral Info Transfer to: Hospice Provider in Charge Post Discharge: PCP - Diagnosis (1) Syncope Status: Acute (2) Goals of care, counseling/discussion Status: Acute (3) Biventricular ICD (implantable cardioverter-defibrillator) in place Status: Acute (4) Congestive heart failure Status: Acute - Respiratory Orders Smoking Cessation: Smoking cessation has been advised. For more information, call the [employer] Quit Line at 6-997-VRYT-NOW. - Diet/Nutrition Diet/Nutrition Orders: Cardiac - Activity Activity Orders: Bedrest - Services Needed Following services are medically necessary services: Nursing, Home Health Aide - Transfer Medications Home Medications: Albuterol Sulfate [Ventolin Hfa] 1 puff IH Q4H PRN #0 02/04/16 [History] Isosorbide MONOnitrate (24 HR) [Imdur] 30 mg PO DAILY 02/04/16 [History] Rivaroxaban [Xarelto] 15 mg PO DAILY 02/04/16 [History] Aspirin 81 mg PO DAILY 02/06/16 [History] Albuterol Neb [AccuNeb] 0.63 mg IH Q6H PRN 05/10/16 [History] Enalapril Maleate [Vasotec] 10 mg PO BID 05/10/16 [History] OxyCODONE/APAP 10/325 [Percocet 10/325 MG] 1 each PO Q6HR PRN #12 tablet [Rx] Alprazolam [Xanax 0.5 MG Tablet] 0.5 mg PO TID PRN 10/29/16 [History] Digoxin [Lanoxin] 0.125 mg PO DAILY 10/29/16 [History] Docusate Sodium [Dok] 100 mg PO DAILY 10/29/16 [History] FentaNYL PATCH [Duragesic] 12 mcg TD Q72H 10/29/16 [History] Furosemide [Lasix] 40 mg PO DAILY 10/29/16 [History] Metoprolol [Lopressor] 50 mg PO BID 10/29/16 [History] Potassium Chloride [Klor-Con Sprinkle] 10 meq PO DAILY 10/29/16 [History] Allergies/Adverse Reactions: Allergies Iodinated Contrast Media - Oral and Allergy (Verified 10/29/16 14:08) Anaphylaxis levofloxacin [From Levaquin] Adverse Reaction (Verified 10/29/16 14:08) TENDONITIS Certification: Further, I certify that my clinical findings support that this patient is homebound (i.e. absences from home require considerable and taxing effort and are for medical reasons or scientologist services or infrequently or short duration when for other reasons) because: Homebound Reason: Leaving home requires considerable and taxing effort due to condition, Severity of cardiac or pulmonary status limits activity tolerance Attestation: My signature below is to certify that this patient is under my care and that I, or nurse practitioner, or a physician's senior underwriting assistant working with me, has a face-to -face encounter with this patient.
[2016-10-31] MEDS ORDERED: FLU VACC QS2016-17 36MOS UP/PF 0.5 ML SYRINGE IM ONE (12:11)
--- NOTE | 2016-11-01 11:30 | Electrocardiograph Report ---
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
--- NOTE | 2016-11-01 15:58 | Electrocardiograph Report ---
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
== END 2016-10-31 16:05 | disposition home health service (06) ==
LOC: 3NENU 11:19 → EMEROO 11:19 → 3NENU 14:02
PROVIDERS: ADMIT Internal Medicine; ATTEND Internal Medicine